=== PATIENT | male | born 1930 | race Caucasian/White ===

== ENCOUNTER 2017-09-05 16:14 | Outpatient (CLI) | payer MEDICARE, OTHER ==
--- NOTE | 2017-09-05 19:18 | RAD ---
LEFT FOOT: 09/05/17 Three views. HISTORY: Ulceration. Small enthesophyte from the posterior calcaneus. Tarsals appear unremarkable. The metatarsals are int act. Phalanges are intact. Mild DJD at the first MTP joint. Mild narrowing of the IP joints. No lytic or destructive process. No plain film evidence of osteomyelitis identified. No significant soft tis alyce swelling identified. IMPRESSION: There are degenerative changes as described. No acute abnormality. POS: [facility]
== END 2017-09-05 16:15 | disposition home or self-care (01) ==
LOC: RAD-FRANK 16:14
PROVIDERS: ATTEND Nurse Practitioner Family
DX: E11.40 Type 2 diabetes mellitus with diabetic neuropathy, unspecified (principal); E11.621 Type 2 diabetes mellitus with foot ulcer; L97.421 Non-pressure chronic ulcer of left heel and midfoot limited to breakdown of skin
CPT/HCPCS: 36415; 87070; 87205

== ENCOUNTER 2018-01-01 12:46 | Outpatient (CLI) | payer MEDICARE, OTHER ==
--- NOTE | 2018-01-01 15:28 | ULT ---
BILATERAL LOWER EXTREMITY VENOUS DOPPLER ULTRASOUND: Date: 01-01-18 Comparison: None. History: Bilateral lower extremity pain, assess for DVT. Technique: Multiplanar grayscale sonographic imaging of the venous structures of the bilateral lower extremities obtained with color flow and spectral analysis. FINDINGS: Bilateral common femoral veins, greater saphenous veins, profunda femoral veins, femoral veins, popli teal veins, and posterior tibial veins are patent. There is normal blood flow, augmentation and compr ession within the deep venous system bilaterally with no evidence for DVT on either side. IMPRESSION: No evidence for deep venous thrombosis of either lower extremity. POS: [facility]
--- NOTE | 2018-01-01 17:49 | ULT ---
BILATERAL DOPPLER ARTERIAL EVALUATION OF BOTH LOWER EXTREMITIES: Indication: Diabetes, ulcers in the left lower extremity. FINDINGS: There is triphasic waveform of the left common femoral, proximal, and superficial femoral artery with otherwise monophasic appearing waveforms from the mid superficial femoral artery through the dorsali s pedis. Antegrade flow is present within arterial structures of the left lower extremity. More bipha sic waveforms seen within the left profunda femoral artery. Triphasic and biphasic waveforms seen involving the right common femoral and right proximal superfici al femoral with more monophasic waveforms seen from the mid right superficial femoral artery through the level of the dorsalis pedis. IMPRESSION: Severe bilateral atherosclerotic disease in both lower extremities extending from the mid superficial femoral arteries through the dorsalis pedis artery. POS: [facility]
== END 2018-01-01 12:47 | disposition home or self-care (01) ==
LOC: ULT 12:46
PROVIDERS: ATTEND Nurse Practitioner Family
DX: E11.621 Type 2 diabetes mellitus with foot ulcer (principal); E11.40 Type 2 diabetes mellitus with diabetic neuropathy, unspecified; H53.452 Other localized visual field defect, left eye; E11.22 Type 2 diabetes mellitus with diabetic chronic kidney disease; N18.3 Chronic kidney disease, stage 3 (moderate); E78.2 Mixed hyperlipidemia; M32.9 Systemic lupus erythematosus, unspecified; E11.51 Type 2 diabetes mellitus with diabetic peripheral angiopathy without gangrene; I73.9 Peripheral vascular disease, unspecified; M79.604 Pain in right leg; M79.605 Pain in left leg; I70.202 Unspecified atherosclerosis of native arteries of extremities, left leg; I70.201 Unspecified atherosclerosis of native arteries of extremities, right leg; Z79.4 Long term (current) use of insulin; Z86.73 Personal history of transient ischemic attack (TIA), and cerebral infarction without residual deficits
CPT/HCPCS: 93923; 93970

== ENCOUNTER 2018-01-23 11:08 | Outpatient (CLI) | payer MEDICARE, OTHER ==
[2018-01-23 12:17] LABS: Hemoglobin 12.5 g/dL (14.0-18.0); Mean Corpuscular HGB CONC 31.2 g/dL (32.0-36.0); Mean Corpuscular Hemoglobin 30.5 pg (27.0-31.0); Mean Corpuscular Volume 97.9 fl (80.0-94.0); Mean Platelet Volume 9.3 fL (7.4-10.4); Platelet Count 202 thou/uL (130-400); RBC Distribution Width 11.9 % (11.5-14.5); White Blood Cell (WBC) Count 9.5 thou/uL (4.8-10.8)
[2018-01-23 12:30] LABS: Anion Gap 10 mmol/L (10-20); BUN (Urea Nitrogen) 23 mg/dL (8.4-25.7); Calc. Creatinine Clearance 0 mL/min (70-130); Calcium 10.2 mg/dL (7.8-10.44); Carbon Dioxide 31 mmol/L (23-31); Chloride 104 mmol/L (98-107); Estimated GFR-MDRD 52; Glucose 79 mg/dL (83-110); Potassium 4.5 mmol/L (3.5-5.1); Sodium 140 mmol/L (136-145)
== END 2018-01-23 11:09 | disposition home or self-care (01) ==
LOC: LABBT 11:08
PROVIDERS: ATTEND Thoracic Surgery (Cardiothoracic Vascular Surgery)
DX: Z01.812 Encounter for preprocedural laboratory examination (principal); I73.9 Peripheral vascular disease, unspecified
CPT/HCPCS: 80048; 85027

== ENCOUNTER → 2018-01-24 | Day surgery (SDC) | payer MEDICARE, OTHER ==
[2018-01-23 11:26] VITALS: BMI 25.2
--- NOTE | 2018-01-23 13:21 | HP ---
HISTORY OF PRESENT ILLNESS: This is an 87-year-old gentleman with a nonhealing left foot ulcer for s everal months. He has no pain. He remains active and gets around with a cane. His states that he does not wear any shoes that would cause pressure in this area. He was seen in the office where he was found to have a weak popliteal pulse and no pedal pulses are now is being admitted for angiogr aphy to assess the circulation to his left foot. PAST MEDICAL HISTORY: Hypertension, dyslipidemia, diabetes mellitus, history of remote stroke, mild lupus, carotid stenosis, noncritical He has also had a history of diverticulosis with a GI bleed and has chronic kidney disease with a creatinine of about 1.5, followed by Dr. Ram. PAST SURGICAL HISTORY: Includes cholecystectomy, lumbar back surgery and left hip surgery in 2017. SOCIAL HISTORY: He has not smoked in greater than 10 years. He does not drink. He is retired from the [employer] business. He is . ALLERGIES: PENICILLIN. MEDICATIONS: Pravastatin 20 a day, iron supplements, hydralazine 25 t.i.d., amlodipine 5 daily, ruthie zosin 2 mg at bedtime, aspirin one a day, memantine 10 mg b.i.d., Lasix 20 daily, levothyroxine 25 mc g a day, hydroxychloroquine sulfate 200 mg daily, prednisone 5 mg every other day, NovoLog 70/30, 17 units b.i.d. PHYSICAL EXAMINATION: GENERAL: Elderly gentleman in no distress. VITAL SIGNS: Blood pressure 120/60, heart rate 78. NECK: Bilateral bruits, left greater than right. CARDIAC: Regular rate and rhythm with soft systolic murmur. LUNGS: Clear to auscultation bilaterally. ABDOMEN: Soft and nontender, nondistended. EXTREMITIES: He has no edema with a 5 mm clean ulcer over the first left metatarsal head with palpab le femoral pulses bilaterally, a weak, but present left popliteal and no pedal pulses. Doppler revea ls a right-sided biphasic peroneal and PT signal with a PT pressure of 110 compared to a biphasic lef t peroneal signal at 130. PLAN: The plan at this time is angiography of the left leg.
[~2018-01-24] MED LIST: Clopidogrel Bisulfate 300 MG TAB ONE; Heparin 10,000 UNITS/1 ML VIAL ONE; Iopamidol 370 76% 50 ML VIAL FS ONE; Lidocaine 1% (PF) 30 ML VIAL ONE; Protamine Sulfate 50 MG/5 ML VIAL ONE
--- NOTE | 2018-01-24 09:27 | OP ---
DATE OF PROCEDURE: 01/24/2018 PREOPERATIVE DIAGNOSIS: Peripheral artery disease with nonhealing wound, left foot. PROCEDURE: Aortogram, iliofemoral runoff and left lower extremity runoff with angioplasty of the lef t SFA using distally in the SFA and popliteal artery a 4 x 150 Lutonix balloon and proximally in the mid and distal SFA a 5 x 150 Lutonix balloon, angioplasty of the tibioperoneal trunk and the peroneal artery with 2.5 x 100 Gilman balloon. SURGEON: Dr. Franky Joseph FINDINGS: The patient had tortuous, but normal aortoiliac segments. Common femoral artery on the le ft was widely patent as was the profunda. The superficial femoral artery had some mild less than 30% irregularities proximally. In the mid SFA there was a couple of high grade 80-90% lesions as well a s at the junction of the SFA and popliteal. Popliteal artery directly behind the knee had about a 90 % stenosis. AT and PT were occluded and the peroneal artery was patent with several high grade lesio ns in the first 3 cm. Following completion of the angioplasty, there was some mild irregularity in t he popliteal artery and the peroneal was widely patent. PROCEDURE IN DETAIL: After prepping and draping the right femoral artery was punctured under ultraso und guidance and due to calcification dilator and sheath were placed with some difficulty. Following this, a Contra catheter was used to shoot an aortoiliac runoff and then the Contra catheter was used to direct a Glidewire into the mid SFA. Following this, a Spurger catheter was advanced and runoff of the left leg obtained. Through the Sam catheter a Magic Torque wire was exchanged and a 6-Japanese de stination sheath was then advanced into the left common femoral artery. Over this magic torque wire predilation of the popliteal and SFA was performed with a 4 mm x 250 balloon. Following this, the Julianna tonix 4 x 150 balloon was used to dilate the popliteal artery. The SFA was then treated with a 5 x 1 50 Lutonix balloon. Following this, the glide catheter was placed over the wire and the wire exchang ed for a Luge wire which was gently passed into the tibioperoneal trunk and then into the peroneal ar jaleesa distally where it was more normal. 2.5 Gilman balloon was then used for prolonged inflation, f ollowing which completion angiography was done. The patient had been heparinized with 7500 and then 5000 of heparin and was reversed with 25 of protamine. Sheath is to be removed.
== END ==
LOC: CCL 06:14
PROVIDERS: ATTEND Thoracic Surgery (Cardiothoracic Vascular Surgery)
PROC: B40DYZZ Plain Radiography of Aorta and Bilateral Lower Extremity Arteries using Other Contrast (ICD-10-PCS; principal; 2018-01-24)
DX: E11.51 Type 2 diabetes mellitus with diabetic peripheral angiopathy without gangrene (principal); I70.245 Atherosclerosis of native arteries of left leg with ulceration of other part of foot; E11.621 Type 2 diabetes mellitus with foot ulcer; L97.529 Non-pressure chronic ulcer of other part of left foot with unspecified severity; E78.5 Hyperlipidemia, unspecified; M32.9 Systemic lupus erythematosus, unspecified; I65.23 Occlusion and stenosis of bilateral carotid arteries; E11.22 Type 2 diabetes mellitus with diabetic chronic kidney disease; I12.9 Hypertensive chronic kidney disease with stage 1 through stage 4 chronic kidney disease, or unspecified chronic kidney disease; N18.9 Chronic kidney disease, unspecified; Z79.82 Long term (current) use of aspirin; Z79.4 Long term (current) use of insulin; Z79.52 Long term (current) use of systemic steroids; Z79.899 Other long term (current) drug therapy; Z88.0 Allergy status to penicillin; Z87.891 Personal history of nicotine dependence; Z86.73 Personal history of transient ischemic attack (TIA), and cerebral infarction without residual deficits
CPT/HCPCS: 36247; 37224; 37228; 85347 ×2; C1769 ×4; C1887; C2623; 76942; J1644; J2001; J2720

== ENCOUNTER 2018-02-25 20:40 | Emergency (ER) | payer MEDICARE, OTHER ==
--- NOTE | 2018-02-25 21:08 | RAD ---
THREE VIEWS LEFT FOOT: History: Left foot pressure ulcer, pain. FINDINGS: AP, lateral, and oblique views of the left foot obtained and demonstrate no evidence of left foot fra ctures, subluxations, or bony lesions. IMPRESSION: Normal three views left foot. POS: [facility]
[2018-02-25 22:52] LABS: #Eosinphils 0.3 thou/uL (0.0-0.7); #Lymphocytes 1.4 thou/uL (1.20-3.40); #Monocytes 0.7 thou/uL (0.11-0.59); #Neutrophils 7.1 thou/uL (1.40-6.50); %Basophils 0.3 % (0.0-1.0); %Eosinophils 2.7 % (0.0-10.0); %Lymphocytes 14.6 % (21.0-51.0); %Monocytes 7.3 % (0.0-10.0); %Neutrophils 75.2 % (42.0-75.0); Hemoglobin 11.6 g/dL (14.0-18.0); Mean Corpuscular HGB CONC 32.4 g/dL (32.0-36.0); Mean Corpuscular Hemoglobin 30.7 pg (27.0-31.0); Mean Corpuscular Volume 94.7 fl (80.0-94.0); Mean Platelet Volume 7.8 fL (7.4-10.4); Platelet Count 240 thou/uL (130-400); RBC Distribution Width 11.6 % (11.5-14.5); Red Blood Cell (RBC) Count 3.77 mill/uL (4.70-6.10); White Blood Cell (WBC) Count 9.4 thou/uL (4.8-10.8)
[2018-02-25 23:12] LABS: ALT (SGPT) 16 U/L (8-55); AST (SGOT) 18 U/L (5-34); Albumin 3.6 g/dL (3.4-4.8); Alkaline Phosphatase 105 U/L (40-150); Anion Gap 9 mmol/L (10-20); BUN (Urea Nitrogen) 18 mg/dL (8.4-25.7); Bilirubin, Total 0.5 mg/dL (0.2-1.2); Calc. Creatinine Clearance 0 mL/min (70-130); Calcium 10.1 mg/dL (7.8-10.44); Carbon Dioxide 33 mmol/L (23-31); Chloride 100 mmol/L (98-107); Estimated GFR-MDRD 44; Glucose 265 mg/dL (83-110); Protein, Total 6.6 g/dL (5.8-8.1); Sodium 138 mmol/L (136-145)
== END 2018-02-25 23:31 | disposition home or self-care (01) ==
LOC: ERS 20:40
DX: L03.116 Cellulitis of left lower limb (principal); E11.621 Type 2 diabetes mellitus with foot ulcer; L97.529 Non-pressure chronic ulcer of other part of left foot with unspecified severity; E03.9 Hypothyroidism, unspecified; G30.9 Alzheimer's disease, unspecified; F02.80 Dementia in other diseases classified elsewhere, unspecified severity, without behavioral disturbance, psychotic disturbance, mood disturbance, and anxiety; J45.909 Unspecified asthma, uncomplicated; L40.9 Psoriasis, unspecified; M32.9 Systemic lupus erythematosus, unspecified; E78.5 Hyperlipidemia, unspecified; I12.9 Hypertensive chronic kidney disease with stage 1 through stage 4 chronic kidney disease, or unspecified chronic kidney disease; E11.22 Type 2 diabetes mellitus with diabetic chronic kidney disease; N18.3 Chronic kidney disease, stage 3 (moderate); Z86.73 Personal history of transient ischemic attack (TIA), and cerebral infarction without residual deficits
CPT/HCPCS: 36415; 80053; 85025

== ENCOUNTER 2018-03-01 09:01 | Outpatient (CLI) | payer MEDICARE, OTHER ==
--- NOTE | 2018-03-01 11:46 | HP ---
DATE OF SERVICE: 03/01/2018 HISTORY OF PRESENT ILLNESS: Mr. Sheila Ugarte is a very pleasant 87-year-old gentleman accompani ed by his who presents to the [facility] for evaluation of an ulceration of the left medial fo ot in the region of the first metatarsophalangeal joint. The patient's states that the ulcerati on has been present for approximately 6 months. The patient underwent percutaneous revascularization of the left lower extremity by Dr. Franky Joseph on 01/24/2018. Two weeks later, patient was seen in the Emergency Department for a lesion of the dorsum of the left foot. At this time, the patient was referred to the Wound Center for evaluation of the ulceration of the left medial foot in the region o f the first metatarsophalangeal joint. The patient's states that the ulceration of the left med ial foot has been cultured. The patient is presently taking p.o. antibiotics as per Dr. Cadena and a s per the patient's nurse practitioner, Joann Leigh. PAST MEDICAL HISTORY: 1. Diabetes mellitus. 2. Hypertension. 3. CVA x2. 4. Transient ischemic attack. 5. Peripheral vascular disease. 6. Hypothyroidism. 7. Dementia. 8. Chronic renal failure. 9. Anemia 10. Benign prostatic hypertrophy. 11. Diverticular hemorrhage. 12. Mild lupus. PAST SURGICAL HISTORY: 1. Cataract surgery on the left. 2. Cataract surgery on the right. 3. Back surgery. 4. Cholecystectomy. 5. Appendectomy. 6. Rotator cuff surgery. 7. Sinus surgery. 8. ORIF of left intertrochanteric femur fracture. 9. Percutaneous revascularization of left lower extremity on 01/24/[address] Franky Joesph. MEDICATIONS: 1. Insulin. 2. Medication for hypothyroidism. 3. Donepezil. 4. Memantine. 5. Lasix. 6. [place] 3. 7. Acid ethyl esters. 8. Terazosin. 9. Atorvastatin. 10. Hydralazine. 11. Amlodipine. 12. Prednisone. 13. Iron. 15. Plavix. 16. Doxycycline. 17. Bactrim. ALLERGIES: PENICILLIN, CLINDAMYCIN, CRESTOR. SOCIAL HISTORY: Significant for tobacco use of 1 pack of cigarettes per day for 10-20 years. The pa chantel states that he stopped smoking 20 years ago. The patient admits to only the rare consumption o f alcohol. FAMILY HISTORY: Significant for diabetes mellitus. The patient states that both parents were diagno sed with diabetes mellitus. Family history is negative for coronary artery disease. PHYSICAL EXAMINATION: VITAL SIGNS: Temperature 98.0, pulse 81, respirations 19, blood pressure 116/78, Accu-Chek 142. GENERAL: An 87-year-old gentleman sitting on table in examination room in no acute distress. HEENT: Normocephalic, atraumatic. NECK: No nuchal rigidity. CHEST: Clear to auscultation. CARDIOVASCULAR: Regular rate and rhythm. ABDOMEN: Soft. EXTREMITIES: An ulceration of the left medial foot in the region of the first metatarsophalangeal teresa int is present. The dimensions of the wound are approximately 1.1 x 1.0 cm. Serous drainage is asso ciated with the wound which was sent for aerobic and anaerobic cultures. No maceration of the skin o f the periwound is noted. A dorsalis pedis pulse is not palpable on the left. A dorsalis pedis puls e is, however, easily audible by Doppler. No significant edema of the left foot is present on exam t amaya. ASSESSMENT AND PLAN: 1. Ulceration of left medial foot in the region of the first metatarsophalangeal joint as described above. Dressing changes of Silverlon and bordered gauze are to be performed 3 times per week after c leansing and irrigation with the assistance of Home Health. Arrangements will be made for MRI of the left forefoot without contrast to look for findings suggestive of osteomyelitis. I will see Mr. Clements the medical center again after MRI of the left forefoot without contrast has been obtained. The patient has been a sked to continue p.o. antibiotics as previously prescribed. The patient and his understands and are in agreement with the preceding treatment plan. 2. Diabetes mellitus. The patient's Accu-Chek in clinic today is 142. The patient has been told th at for optimal wound healing, his blood glucoses should remain below 150. 3. Hypertension. 4. Cerebrovascular accident x2. 5. History of transient ischemic attack. 6. Peripheral vascular disease. 7. Hypothyroidism. 8. Dementia. 9. Chronic renal failure. 10. Anemia 11. Benign prostatic hypertrophy. 12. Diverticular hemorrhage. 13. Mild lupus. The patient is followed by Dr. Magallon.
== END 2018-03-01 09:02 | disposition home or self-care (01) ==
LOC: WCC 09:01
PROVIDERS: ATTEND Family Medicine
DX: E11.621 Type 2 diabetes mellitus with foot ulcer (principal); L97.529 Non-pressure chronic ulcer of other part of left foot with unspecified severity; E03.9 Hypothyroidism, unspecified; I63.9 Cerebral infarction, unspecified; I73.9 Peripheral vascular disease, unspecified; F03.90 Unspecified dementia, unspecified severity, without behavioral disturbance, psychotic disturbance, mood disturbance, and anxiety; E11.22 Type 2 diabetes mellitus with diabetic chronic kidney disease; I12.9 Hypertensive chronic kidney disease with stage 1 through stage 4 chronic kidney disease, or unspecified chronic kidney disease; N18.9 Chronic kidney disease, unspecified; D63.1 Anemia in chronic kidney disease; N40.0 Benign prostatic hyperplasia without lower urinary tract symptoms; K57.91 Diverticulosis of intestine, part unspecified, without perforation or abscess with bleeding; Z87.891 Personal history of nicotine dependence; Z86.73 Personal history of transient ischemic attack (TIA), and cerebral infarction without residual deficits
CPT/HCPCS: 87070; 87075; 87077; 87184; 87186; 87205; 97139; 97602; G0463; 99203

== ENCOUNTER 2018-03-14 11:21 | Outpatient (CLI) | payer MEDICARE, OTHER ==
--- NOTE | 2018-03-14 14:25 | MRI ---
MRI LEFT FOOT WITHOUT CONTRAST: Date: 03/14/18 HISTORY: Pressure ulcer. Osteomyelitis. COMPARISON: Foot radiographs from 2018. FINDINGS: Bones: Loss of normal marrow signal on the medial margin of the great toe metatarsal head and neck, as well as of the most medial cortex of the proximal phalanx base. There are mild degenerative changes in the metatarsophalangeal joint of the great toe. No other areas of abnormal marrow signal are appreciated . Tendons: There is mild edema and thickening of the adductor hallucis tendon and partial tearing. Muscles: No evidence of pyomyositis, although there is moderate edema throughout the intrinsic musculature whi ch may be diabetic in nature. 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 There is overlying soft tissue ulcer. There is al so some loss of normal marrow signal of the medial cortex and medial hallux sesamoid. POS: [facility]
== END 2018-03-14 11:22 | disposition home or self-care (01) ==
LOC: MRI 11:21
PROVIDERS: ATTEND Family Medicine
DX: E11.621 Type 2 diabetes mellitus with foot ulcer (principal); L97.529 Non-pressure chronic ulcer of other part of left foot with unspecified severity; M86.9 Osteomyelitis, unspecified; R93.7 Abnormal findings on diagnostic imaging of other parts of musculoskeletal system

== ENCOUNTER 2018-05-14 11:38 | Outpatient (CLI) | payer MEDICARE, OTHER ==
--- NOTE | 2018-05-14 16:30 | HP ---
DATE OF SERVICE: 05/14/2018 HISTORY OF PRESENT ILLNESS: Mr. Sheila Ugarte is a very pleasant 87-year-old gentleman accompani ed by his , who presents to the Wound Center for evaluation of an ulceration of the left medial f oot in the region of the first metatarsophalangeal joint. At the time of the patient's initial prese ntation to the Wound Center, the patient's stated that the ulceration had been present for appro ximately 6 months. The patient underwent percutaneous revascularization of the left lower extremity by Dr. Franky Joseph on 01/24/2018. Two weeks later, the patient was seen in the Emergency Department for a lesion of the dorsum of the left foot. At this time, the patient was referred to the Wound [facility] for evaluation of the ulceration of the left medial foot in the region of the first metatarsophal angeal joint. At the time of the patient's initial visit to the Wound Center, the patient's sta ya that the ulceration of the left medial foot had been cultured. She stated that the patient was t aking p.o. antibiotics as per Dr. Cadena and as per the patient's nurse practitioner, Joann Leigh. A fter being seen in the Wound Center, arrangements were made for MRI of the left forefoot without cont rast. MRI revealed findings of osteomyelitis, although arrangements were made by Dr. Joseph for the p atient to be seen in consultation by Dr. Mele Vizcarra. The patient's states that Mr. Ugarte h as not yet been seen by Infectious Diseases. The patient's states that due to bad weather, she had no telephone service. PHYSICAL EXAMINATION: VITAL SIGNS: Temperature 98.3, pulse 92, respirations 23, blood pressure 129/59. Accu-Chek 63. EXTREMITIES: An ulceration of the left medial foot in the region of the first metatarsophalangeal teresa int is still present. The dimensions of the wound are approximately 0.8 x 1.2 cm. The dimensions of the wound at the time of the patient's last visit were approximately 1.1 x 1.0 cm. No purulent drai nage is associated with the wound. No maceration of the skin of the periwound is noted. A dorsalis pedis pulse is not palpable on the left. No significant edema of the left foot is present on exam to day. ASSESSMENT AND PLAN: 1. Ulceration of left medial foot in the region of the first metatarsophalangeal joint as described above. Dressing changes of Silverlon and bordered gauze will be continued 3 times per week after mir ansing and irrigation with the assistance of Home Health. Arrangements will be made again for the christopher golden to be seen in consultation by Dr. Vizcarra. I will see Mr. Ugarte again after evaluation and any necessary treatment by Dr. Vizcarra has been initiated. The patient and his understand and are in agreement with the preceding treatment plan. The patient's understands and is in agreement wit h the preceding treatment plan. 2. Diabetes mellitus. The patient's Accu-Chek in clinic today 63. The patient's has been told that for optimal wound healing, the patient's blood glucoses should remain below 150. 3. Hypertension. 4. Cerebrovascular accident x2. 5. History of transient ischemic attack. 6. Peripheral vascular disease. 7. Hypothyroidism. 8. Dementia. 9. Chronic renal failure. 10. Anemia. 11. Benign prostatic hypertrophy. 12. Diverticular hemorrhage. 13. Mild lupus. The patient is followed by Dr. Magallon.
== END 2018-05-14 11:39 | disposition home or self-care (01) ==
LOC: WCC 11:38
PROVIDERS: ATTEND Family Medicine
DX: S91.302D Unspecified open wound, left foot, subsequent encounter (principal); S51.801D Unspecified open wound of right forearm, subsequent encounter
CPT/HCPCS: 97602

== ENCOUNTER 2018-05-24 10:04 | Emergency (ER) | payer MEDICARE, OTHER ==
--- NOTE | 2018-05-24 12:14 | CT ---
CT BRAIN WITHOUT CONTRAST: Date: 05/24/18 HISTORY: Fall. Head injury. Patient on aspirin and Plavix. FINDINGS: Comparison made with exam dated 09/03/16. Changes of cortical atrophy, chronic small vessel ischemic disease, and encephalomalacia likely due t o old insult in the right occipital lobe are again seen. The ventricular size is stable and the basil ar cisterns are patent. A small old infarction is also seen in the left cerebellar hemisphere. No shena dence of acute infarct, hemorrhage, midline shift, or abnormal extra-axial fluid collections are seen . The bony calvarium is intact. An old lacunar infarct is seen in the left thalamus. IMPRESSION: No CT evidence of acute intracranial process. . POS: [facility]
--- NOTE | 2018-05-24 12:45 | RAD ---
LEFT FEMUR TWO VIEWS: HISTORY: Fall. Left leg injury. FINDINGS: Internal fixation, left hip. No perihardware lucency. No acute fracture or dislocation. IMPRESSION: No acute osseous abnormalities are demonstrated. POS: [facility]
--- NOTE | 2018-05-24 12:46 | RAD ---
LEFT KNEE FIVE VIEWS: HISTORY: Fall. Posttraumatic pain. COMPARISON: None. FINDINGS: There is no significant joint fluid. There is mild bone demineralization. Mild degenerative change in the patellofemoral compartment and medial compartment. No fractures. IMPRESSION: No fracture. POS: [facility]
== END 2018-05-24 13:59 | disposition home or self-care (01) ==
LOC: ERS 10:04
DX: M79.652 Pain in left thigh (principal); E11.9 Type 2 diabetes mellitus without complications; I10 Essential (primary) hypertension; E78.5 Hyperlipidemia, unspecified; W01.0XXA Fall on same level from slipping, tripping and stumbling without subsequent striking against object, initial encounter
CPT/HCPCS: 70450